=== PATIENT | male | born 1990 | race Caucasian/White ===

== ENCOUNTER 2021-08-09 13:45 | Emergency (ER) | payer OTHER ==
[2021-08-09 13:53] VITALS: TEMP 99.1
[2021-08-09] MEDS ORDERED: SODIUM CHLORIDE 0.9% 1,000 ML IV STA (15:07)
[2021-08-09] MEDS ORDERED: PANTOPRAZOLE 40 MG/10 ML VIAL IVP STA (15:43)
[2021-08-09 15:44] LABS: Basophils % (A) 0 %; Eosinophils # (A) 0.1 k/uL (0-0.7); Eosinophils % (A) 1 %; HCT 52.1 % (39.0-53.0); HGB 17.4 gm/dL (13.0-17.5); Lymphocytes # (A) 1.7 k/uL (1.0-4.8); Lymphocytes % (A) 18 %; MCHC 33.4 g/dL (31.0-37.0); MCV 89.7 fL (80.0-100.0); Mean Platelet Volume 9.6; Monocytes # (A) 0.6 k/uL (0-1.0); Monocytes % (A) 6 %; Neutrophils % (A) 74 %; Platelet Count 144 k/uL (150-450); RBC 5.81 m/uL (4.30-5.90); RDW 13.4 % (11.5-15.5); WBC 9.4 k/uL (3.8-10.6)
--- NOTE | 2021-08-09 15:48 | ED ---
GI Bleed HPI - General Chief complaint: GI Bleed Stated complaint: Abdominal Pain,Diarrhea Time Seen by Provider: 08/09/21 15:06 Source: patient, RN notes reviewed Mode of arrival: ambulatory Limitations: no limitations - History of Present Illness Initial comments: This is a pleasant 31-year-old male who presents back complaining of blood in stool. Patient states it started this morning. Patient states he had bright red blood per rectum after having what he described as severe cramping in the lower abdomen. Patient states he then had a few more episodes of bloody diarrhea prior to coming in. Last food about 2 PM. Patient really is denying any abdominal pain at this time. No bleeding from other sites. No current nausea. Patient states he did have an episode of vomiting earlier today. There was no hematemesis or coffee-ground emesis. Patient denies any fever chills. No chest pain shortness of breath. No problems with urination. No testicular pain. Skin rashes or lesions. Patient has no history of blood dyscrasias or bleeding disorders. Not on blood thinners. Patient states he has been taking both Aleve and ibuprofen at home for back pain which she has had since last fall. Patient states he lifted something at work and his back intermittently since. Sharp pain to the right lumbar area which is exacerbated by movement. He has occasional radiation into the right leg. No symptoms of saddle anesthesia. No urinary retention. No urinary incontinence. No constipation or bowel incontinence. - Related Data Home Medications Medication Instructions Recorded Confirmed Tylenol Migraine 1 tab PO DAILY PRN 08/09/21 08/09/21 Previous Rx's Medication Instructions Recorded Acetaminophen [Tylenol] 500 mg PO Q4-6H PRN #24 tab 08/09/21 Cyclobenzaprine [Flexeril] 10 mg PO TID PRN #20 tab 08/09/21 Omeprazole [PriLOSEC] 20 mg PO DAILY #30 cap 08/09/21 Allergies Allergy/AdvReac Type Severity Reaction Status Date / Time shellfish derived Allergy Unknown Verified 08/09/21 17:54 strawberry Allergy Unknown Verified 08/09/21 17:54 Review of Systems ROS Statement: Those systems with pertinent positive or pertinent negative responses have been documented in the HPI. ROS Other: All systems not noted in ROS Statement are negative. Past Medical History Past Medical History: No Reported History History of Any Multi-Drug Resistant Organisms: None Reported Past Surgical History: No Surgical Hx Reported Past Psychological History: Depression Smoking Status: Vaper Past Alcohol Use History: Occasional Past Drug Use History: Marijuana General Exam - General Exam Comments Initial Comments: This is a 31-year-old male who does not appear to be in any significant distress. Patient does not appear to be ill or toxic. Limitations: no limitations General appearance: alert, in no apparent distress Head exam: Present: atraumatic, normocephalic, normal inspection Eye exam: Present: normal appearance, PERRL, EOMI. Absent: scleral icterus, conjunctival injection, periorbital swelling ENT exam: Present: normal exam, mucous membranes moist, TM's normal bilaterally, normal external ear exam Neck exam: Present: normal inspection, full ROM. Absent: tenderness, meningismus, lymphadenopathy Respiratory exam: Present: normal lung sounds bilaterally, chest wall tenderness. Absent: respiratory distress, wheezes, rales, rhonchi, stridor Cardiovascular Exam: Present: regular rate, normal rhythm, normal heart sounds. Absent: systolic murmur, diastolic murmur, rubs, gallop, clicks GI/Abdominal exam: Present: soft, normal bowel sounds. Absent: distended, tenderness, guarding, rebound, rigid Rectal exam: Present: normal inspection, normal rectal tone. Absent: decreased rectal tone, black stool, bloody stool, fecal impaction, mass, tenderness, normal prostate, prostate tenderness, prostate enlargement Extremities exam: Present: normal inspection, full ROM, normal capillary refill. Absent: tenderness, pedal edema, joint swelling, calf tenderness Back exam: Present: normal inspection, full ROM. Absent: tenderness, CVA tenderness (R), CVA tenderness (L), muscle spasm, paraspinal tenderness, vertebral tenderness, rash noted Neurological exam: Present: alert, oriented X3, CN II-XII intact, normal gait, reflexes normal, other (Straight leg raise negative, great toe extensor strength normal, no saddle anesthesia). Absent: motor sensory deficit Psychiatric exam: Present: normal affect, normal mood Skin exam: Present: warm, dry, intact, normal color. 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 No rectal bleeding here. Did have a positive Hemoccult. Unable provide a stool sample Medical Decision Making - Medical Decision Making Bloody diarrhea, chronic back pain, elevated blood pressure with a diastolic of 124 here in the ER Patient hemodynamically stable. Patient had a tiny amount of red blood earlier today with some diarrhea. However he is not orthostatic. Patient okay to fo llow-up with gastroenterology as an outpatient. Treatment plan discussed. We'll treat the patient with antiemetics. Patient was over taking NSAIDs for the past 3 months however patient shows no evidence of upper GI bleed. Has no epigastric or upper abdominal pain. Patient's abdomen was reevaluated prior to discharge, benign, soft, nontender, nondistended The case was discussed with ED attending physician. Presentation, findings, treatment plan discussed in detail. Follow-up with your regular physician as directed. Return to the ER immediately if any symptoms worsen, new symptoms arise, or any other problems develop. Do not take NSAIDs for several days. For pain continue [id number] Tylenol. Hemoccult was positive. However there was no gross blood. Light brown stool on examination. Patient was unable to provide a stool sample here. Platelets were mildly low at 144,000. - Lab Data Result diagrams: 08/09/21 15:30 08/09/21 15:30 Lab Results 08/09/21 08/09/21 08/09/21 Range/Units 15:20 15:25 15:30 WBC 9.4 (3.8-10.6) k/uL RBC 5.81 (4.30-5.90) m/uL Hgb 17.4 (13.0-17.5) gm/dL Hct 52.1 (39.0-53.0) % MCV 89.7 (80.0-100.0) fL MCH 30.0 (25.0-35.0) pg MCHC 33.4 (31.0-37.0) g/dL RDW 13.4 (11.5-15.5) % Plt Count 144 L (150-450) k/uL MPV 9.6 Neutrophils % 74 % Lymphocytes % 18 % Monocytes % 6 % Eosinophils % 1 % Basophils % 0 % Neutrophils # 7.0 (1.3-7.7) k/uL Lymphocytes # 1.7 (1.0-4.8) k/uL Monocytes # 0.6 (0-1.0) k/uL Eosinophils # 0.1 (0-0.7) k/uL Basophils # 0.0 (0-0.2) k/uL PT (9.0-12.0) sec INR (<1.2) APTT (22.0-30.0) sec Sodium (137-145) mmol/L Potassium (3.5-5.1) mmol/L Chloride (98-107) mmol/L Carbon Dioxide (22-30) mmol/L Anion Gap mmol/L BUN (9-20) mg/dL Creatinine (0.66-1.25) mg/dL Est GFR (CKD-EPI)AfAm (>60 ml/min/1.73 sqM) Est GFR (CKD-EPI)NonAf (>60 ml/min/1.73 sqM) Glucose (74-99) mg/dL Calcium (8.4-10.2) mg/dL Total Bilirubin (0.2-1.3) mg/dL AST (17-59) U/L ALT (4-49) U/L Alkaline Phosphatase (38-126) U/L Total Protein (6.3-8.2) g/dL Albumin (3.5-5.0) g/dL Stool Occult Blood (Negative) Blood Type A Positive Blood Type Confirm A Positive Blood Type Recheck No Previous Record Bld Type Recheck Status CABO Indicated Antibody Screen NEGATIVE Spec Expiration Date 08/12/2021 - 231908/09/21 08/09/21 08/09/21 Range/Units 15:30 15:30 16:32 WBC (3.8-10.6) k/uL RBC (4.30-5.90) m/uL Hgb (13.0-17.5) gm/dL Hct (39.0-53.0) % MCV (80.0-100.0) fL MCH (25.0-35.0) pg MCHC (31.0-37.0) g/dL RDW (11.5-15.5) % Plt Count (150-450) k/uL MPV Neutrophils % % Lymphocytes % % Monocytes % % Eosinophils % % Basophils % % Neutrophils # (1.3-7.7) k/uL Lymphocytes # (1.0-4.8) k/uL Monocytes # (0-1.0) k/uL Eosinophils # (0-0.7) k/uL Basophils # (0-0.2) k/uL PT 10.5 (9.0-12.0) sec INR 1.0 (<1.2) APTT 24.1 (22.0-30.0) sec Sodium 142 (137-145) mmol/L Potassium 3.9 (3.5-5.1) mmol/L Chloride 104 (98-107) mmol/L Carbon Dioxide 28 (22-30) mmol/L Anion Gap 10 mmol/L BUN 14 (9-20) mg/dL Creatinine 0.72 (0.66-1.25) mg/dL Est GFR (CKD-EPI)AfAm >90 (>60 ml/min/1.73 sqM) Est GFR (CKD-EPI)NonAf >90 (>60 ml/min/1.73 sqM) Glucose 82 (74-99) mg/dL Calcium 9.2 (8.4-10.2) mg/dL Total Bilirubin 1.1 (0.2-1.3) mg/dL AST 28 (17-59) U/L ALT 19 (4-49) U/L Alkaline Phosphatase 74 (38-126) U/L Total Protein 7.9 (6.3-8.2) g/dL Albumin 4.7 (3.5-5.0) g/dL Stool Occult Blood Positive (Negative) Blood Type Blood Type Confirm Blood Type Recheck Bld Type Recheck Status Antibody Screen Spec Expiration Date - EKG Data EKG Comments: EKG done at 16 point read by the ED attending physician, Dr. Brown reveals sinus arrhythmia with a rate of 70, early repolarization, no evidence of acute ST or T-wave changes. Normal axis. Normal QRS morphology otherwise. Normal intervals. 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 Prescriptions: Cyclobenzaprine [Flexeril] 10 mg PO TID PRN #20 tab PRN Reason: Spasms Omeprazole [PriLOSEC] 20 mg PO DAILY #30 cap Acetaminophen [Tylenol] 500 mg PO Q4-6H PRN #24 tab PRN Reason: Pain Is patient prescribed a controlled substance at d/c from ED?: No Referrals: Nasir Aguilar MD [STAFF PHYSICIAN] - 1-2 days Oly Stallings MD [STAFF PHYSICIAN] - 1-2 days Time of Disposition: 17:38
[2021-08-09] MEDS ORDERED: LABETALOL 5 MG/ML VIAL MDV IVP STA (15:49)
[2021-08-09 15:52] LABS: Partial Thromboplastin Time 24.1 sec (22.0-30.0); Prothrombin Time 10.5 sec (9.0-12.0)
--- NOTE | 2021-08-09 16:13 | XR ---
EXAMINATION TYPE: XR lumbosacral spine min 4V DATE OF EXAM: 08/09/2021 COMPARISON: NONE HISTORY: Pain TECHNIQUE: 5 views FINDINGS: The lumbar vertebrae have normal alignment. Posterior elements are intact. There is no comp ression fracture. Sacroiliac joints are intact. IMPRESSION: Negative lumbar spine exam. No fracture.
--- NOTE | 2021-08-09 16:17 | XR ---
EXAMINATION TYPE: XR KUB DATE OF EXAM: 08/09/2021 COMPARISON: NONE HISTORY: Abdominal pain TECHNIQUE: 5 views FINDINGS: There is no sign of intestinal obstruction or pneumoperitoneum. Fecal pattern is normal. Vonda ng bases are clear. There are no pathologic calcifications. IMPRESSION: Nonacute abdomen.
[2021-08-09 16:38] LABS: ALT 19 U/L (4-49); AST 28 U/L (17-59); African American GFR (CKD) >90 (>60 ml/min/1.73 sqM); Albumin 4.7 g/dL (3.5-5.0); Alkaline Phosphatase 74 U/L (38-126); Anion Gap 10 mmol/L; Blood Urea Nitrogen 14 mg/dL (9-20); Calcium 9.2 mg/dL (8.4-10.2); Carbon Dioxide 28 mmol/L (22-30); Chloride 104 mmol/L (98-107); Glucose 82 mg/dL (74-99); Non-African American GFR(CKD) >90 (>60 ml/min/1.73 sqM); Potassium 3.9 mmol/L (3.5-5.1); Sodium 142 mmol/L (137-145); Total Bilirubin 1.1 mg/dL (0.2-1.3); Total Protein 7.9 g/dL (6.3-8.2)
[2021-08-09 16:40] VITALS: RESP 18
[2021-08-09 17:46] VITALS: BP 148/95; PULSE 76
== END 2021-08-09 17:56 | disposition home or self-care (01) ==
LOC: EC 13:45
DX: A09 Infectious gastroenteritis and colitis, unspecified (principal); G89.29 Other chronic pain; M54.50 Low back pain, unspecified; F32.A Depression, unspecified; F17.290 Nicotine dependence, other tobacco product, uncomplicated; F12.90 Cannabis use, unspecified, uncomplicated; Z79.899 Other long term (current) drug therapy
CPT/HCPCS: 36415; 93005; 86900; 86901; 80053; 85025; 85610; 85730; 86850; 82272; 72110; 74018; 99284; 96374; 96361; C9113